=== PATIENT | female | born 1950 | race Caucasian/White ===

== ENCOUNTER → 2016-10-02 | Outpatient (CLI) | payer BC ==
--- NOTE | 2016-10-03 11:58 | RAD ---
DATE: 10/03/2016 EXAM: DIGITAL SCREEN BILAT W/CAD HISTORY: 66-year-old female presents for screening mammography. COMPARISON: 09/01/2015 TECHNIQUE: Full field digital craniocaudal and mediolateral oblique views of both breasts are obtained. This study was interpreted with the benefit of Computerized Aided Detection (CAD). FINDINGS: Breast parenchymal combination: Level B. The breast parenchyma shows scattered fibroglandular densities. There is no suspicious mass, calcification or architectural distortion within either breast. IMPRESSION: No new suspicious mammographic finding. BI-RADS CATEGORY: 2 BENIGN FINDING RECOMMENDED FOLLOW-UP: 12M 12 MONTH FOLLOW-UP PQRS compliance statement: Patient information was entered into a reminder system with a target due date in one year for the next mammogram. Mammography is a sensitive method for finding small breast cancers, but it does not detect them all and is not a substitute for careful clinical examination. A negative mammogram does not negate a clinically suspicious finding and should not result in delay in biopsying a clinically suspicious abnormality. "Our facility is accredited by the [employer] Mammography [employer]."
== END | disposition home or self-care (01) ==
LOC: MAMMO 13:48
PROVIDERS: ATTEND Obstetrics & Gynecology
DX: Z12.31 Encounter for screening mammogram for malignant neoplasm of breast (principal)
CPT/HCPCS: G0202; 77067

== ENCOUNTER 2017-09-14 16:45 | Emergency (ER) | payer MEDICARE ==
[~2017-09-14] VITALS: Ht 162.6 cm; Wt 76.2 kg
[2017-09-14] MEDS ORDERED: ACETAMINOPHEN 500 MG TABLET PO ONE (17:15)
--- NOTE | 2017-09-14 17:17 | PHYS DOC ---
Past History Past Medical History: Arthritis, Fibromyalgia, GERD, Hyperthyroid Past Surgical History: Cholecystectomy, Tonsillectomy, Other Drug Use: None Adult General Chief Complaint Chief Complaint: POST-OP PROBLEM HPI HPI 67-year-old female patient states she had colonoscopy and EGD today with stomach biopsy without colon biopsy. Patient state she started to have pain in her lower extremities and knees and back and was shaking and didn't feel good. Patient states she was a squeezing on her way to come to the hospital but denies sore throat, fever, cough, nausea and vomiting, abdominal pain, chest pain and shortness of breath, sick contact. Review of Systems Review of Systems Constitutional: Denies fever, reports chills Eyes: Denies change in visual acuity, redness, or eye pain [] HENT: Denies nasal congestion or sore throat [] Respiratory: Denies cough or shortness of breath [] Cardiovascular: No additional information not addressed in HPI [] GI: Denies abdominal pain, nausea, vomiting, bloody stools or diarrhea [] : Denies dysuria or hematuria [] Musculoskeletal: Reports back pain and joint pain [] Integument: Denies rash or skin lesions [] Neurologic: Denies headache, focal weakness or sensory changes [] Endocrine: Denies polyuria or polydipsia [] All other systems were reviewed and found to be within normal limits, except as documented in this note. Current Medications Current Medications Current Medications Medications (Trade) Dose Ordered Sig/Yaritza Start Time Stop Time Status Last Admin Dose Admin Acetaminophen (Tylenol) 1,000 mg 1X ONCE 09/14/17 17:15 09/14/17 17:16 UNV Allergies Allergies Allergies Coded Allergies Type Severity Reaction Last Updated Verified metoclopramide Allergy Intermediate 09/14/17 Yes Uncoded Allergies Type Severity Reaction Last Updated Verified PCN Allergy Intermediate 09/14/17 Physical Exam Physical Exam Constitutional: Well developed, well nourished, mild distress, non-toxic appearance, febrile, T-101. [] HENT: Normocephalic, atraumatic, bilateral external ears normal, oropharynx moist, pharyngeal erythema, no oral exudates, nose normal. [] Eyes: PERRLA, EOMI, conjunctiva normal, no discharge. [] Neck: Normal range of motion, no tenderness, supple, no stridor. [] Cardiovascular:Heart rate regular rhythm, no murmur [] Lungs & Thorax: Bilateral breath sounds clear to auscultation [] Abdomen: Bowel sounds normal, soft, no tenderness, no masses, no pulsatile masses. [] Skin: Warm, dry, no erythema, no rash. [] Back: No tenderness, no CVA tenderness. [] Extremities: No tenderness, no cyanosis, no clubbing, ROM intact, no edema. [] Neurologic: Alert and oriented X 3, normal motor function, normal sensory function, no focal deficits noted. [] Psychologic: Affect normal, judgement normal, mood normal. [] Current Patient Data Vital Signs Vital Signs Date Time Temp Pulse Resp B/P (MAP) Pulse Ox O2 Delivery O2 Flow Rate FiO2 09/14/17 17:04 100.4 94 24 100 Room Air EKG EKG [] Radiology/Procedures Radiology/Procedures [] Course & Med Decision Making Course & Med Decision Making Pertinent Labs and Imaging are pending. I have reinterviewed and reexamined the patient. The patient states she feels back to baseline at this time. The patient states she's had similar reactions in the past after getting medications for procedures. General: No acute distress, nontoxic, not ill-appearing. HEENT: Normocephalic and atraumatic. Oropharynx is normal. No LAD, no meningeal signs Lungs: Clear to auscultation bilaterally, no tachypnea Abdomen: Soft nontender nondistended. Back: Nontender, no CVA tenderness. Cardiovascular: RRR, equal pulses, normal perfusion. Extremities: No signs of edema or DVT The patient looks well and she feels back to baseline. There is some white blood cells in the urine but the patient does not endorse urinary symptoms. There is a slight elevation of the lactic acid that the patient does not present with signs of sepsis at this time. I explained to the patient that this may be an early presentation but he could also have been a reaction to the medication she received today. I have discussed this with the family and the patient and they understand the need for follow-up and they agreed to do so. [] Dragon Disclaimer Dragon Disclaimer This electronic medical record was generated, in whole or in part, using a voice recognition dictation system. Departure Departure: Impression: Primary Impression: Fever Additional Impressions: Drug reaction Leukocytosis, unspecified Disposition: ADMITTED INPATIENT Condition: STABLE Referrals: ERA EDWARDS (PCP) Please follow with your doctor for recheck and reevaluation in 2 days Patient Instructions: Fever, Leukocytosis Problem Qualifiers LATOSHA SANCHEZ MD Sep 14, 2017 17:17 Felton NEVES MD Sep 14, 2017 20:14
[2017-09-14 17:47] LABS: INFLUENZA A PATIENT NEGATIVE (NEGATIVE); INFLUENZA B PATIENT NEGATIVE (NEGATIVE)
[2017-09-14] MEDS ORDERED: IV NORMAL SALINE 1,000ML 1,000 ML IV SCH (17:47)
[2017-09-14] MEDS ORDERED: IV NORMAL SALINE 1,000ML 1,000 ML IV ONE (18:00)
[2017-09-14 18:49] LABS: BASO # 0.1 x10^3/uL (0.0-0.2); BASO % 1 % (0-3); EOS # 0.1 x10^3/uL (0.0-0.7); EOS % 0 % (0-3); HEMATOCRIT 39.9 % (36.0-47.0); HEMOGLOBIN 13.5 g/dL (12.0-15.5); LYMPH # 1.2 x10^3/uL (1.0-4.8); LYMPH % 7 % (24-48); MEAN CORPUSCULAR HEMOGLOBIN 30 pg (25-35); MEAN CORPUSCULAR HGB CONC 34 g/dL (31-37); MEAN CORPUSCULAR VOLUME 88 fL (79-100); MONO # 0.4 x10^3/uL (0.0-1.1); MONO % 2 % (0-9); NEUT % 90 % (31-73); PLATELET COUNT 402 x10^3/uL (140-400); RED BLOOD COUNT 4.55 x10^6/uL (3.50-5.40); RED CELL DISTRIBUTION WIDTH 14.9 % (11.5-14.5); WHITE BLOOD COUNT 16.6 x10^3/uL (4.0-11.0)
[2017-09-14 19:13] LABS: ALBUMIN 3.5 g/dL (3.4-5.0); ALBUMIN/GLOBULIN RATIO 0.9 (1.0-1.7); CREATININE 1.1 mg/dL (0.6-1.0); GFR 49.8; POTASSIUM 3.5 mmol/L (3.5-5.1); TOTAL BILIRUBIN 0.3 mg/dL (0.2-1.0); TOTAL PROTEIN 7.2 g/dL (6.4-8.2)
[2017-09-14 19:19] LABS: BILIRUBIN,URINE NEG (NEG); CLARITY,URINE HAZY; COLOR,URINE YELLOW; GLUCOSE,URINE NEG (NEG)
[2017-09-14 19:20] LABS: BACTERIA,URINE FEW /HPF (0-FEW); NITRITE,URINE NEG (NEG); RBC,URINE 0 /HPF (0-2); SQUAMOUS EPITHELIAL CELL,UR MOD /LPF; UROBILINOGEN,URINE 0.2 mg/dL (0.2 mg/dL); WBC,URINE 20-40 /HPF (0-4)
[2017-09-14 20:50] VITALS: BP 163/71
[2017-09-14 22:49] LABS: % BASOS 1 % (0-3); % LYMPHS 10 % (24-48); % MONOS 1 % (0-10); % SEGS 88 % (35-66); PLT ESTIMATE INCREASED (ADEQUATE)
[2017-09-14 22:50] LABS: OVALOCYTES OCC; SCHISTOCYTES OCC
== END 2017-09-14 20:55 | disposition home or self-care (01) ==
LOC: ER 16:45
DX: D72.829 Elevated white blood cell count, unspecified (principal); T50.905A Adverse effect of unspecified drugs, medicaments and biological substances, initial encounter; K21.9 Gastro-esophageal reflux disease without esophagitis; M79.7 Fibromyalgia; E05.90 Thyrotoxicosis, unspecified without thyrotoxic crisis or storm; Z98.890 Other specified postprocedural states; Z88.8 Allergy status to other drugs, medicaments and biological substances; Y92.89 Other specified places as the place of occurrence of the external cause
CPT/HCPCS: 36415; 80048; 80053; 81001; 82553; 83605; 83690; 84484; 85007; 85025; 85610; 87040; 87086; 87804; 96360; 96361; 99285-25; J7030

== ENCOUNTER → 2017-10-09 | Outpatient (CLI) | payer MEDICARE ==
[2017-09-14 20:50] VITALS: BP 163/71
--- NOTE | 2017-10-09 16:10 | RAD ---
Bone densitometry scan, 10/09/2017: History: Ovarian failure, osteoporosis screening The lumbar spine and right hip were examined utilizing a DEXA technique. The bone mineral density in the lumbar spine as measured from the L1-L4 levels is 0.94 g/sq cm. This yields a T score of -2.0 compatible with osteopenia. The lumbar spine T score on the previous study of 10/10/2011 was -2.5. The total T score at the right hip is currently -0.9 which is in the normal range. On the previous study the right hip T score was -1.2. IMPRESSION: 1. Osteopenia in the lumbar spine, improved since 10/10/2011. 2. The right hip bone mineral density measurement has also improved and is now in the normal range.
--- NOTE | 2017-10-10 09:07 | RAD ---
DATE: 10/09/2017 EXAM: MAMMO SABA SCREENING BILATERAL HISTORY: Routine screening COMPARISON: 25/01/2017 This study was interpreted with the benefit of Computerized Aided Detection (CAD). The breast parenchyma shows scattered fibroglandular densities. Breast parenchyma level B. FINDINGS: 2-D and 3-D tomosynthesis imaging was performed in CC and MLO projections. No new or enlarging breast densities are seen. No suspicious microcalcifications have developed. IMPRESSION: Stable mammograms without evidence of malignancy. BI-RADS CATEGORY: 1 NEGATIVE RECOMMENDED FOLLOW-UP: 12M 12 MONTH FOLLOW-UP PQRS compliance statement: Patient information was entered into a reminder system with a target due date for the next mammogram. Mammography is a sensitive method for finding small breast cancers, but it does not detect them all and is not a substitute for careful clinical examination. A negative mammogram does not negate a clinically suspicious finding and should not result in delay in biopsying a clinically suspicious abnormality. "Our facility is accredited by the [employer] Mammography [employer]."
== END | disposition home or self-care (01) ==
LOC: MAMMO 11:07
PROVIDERS: ATTEND Physician Assistant Medical
DX: Z12.31 Encounter for screening mammogram for malignant neoplasm of breast (principal); Z13.820 Encounter for screening for osteoporosis; M85.88 Other specified disorders of bone density and structure, other site; E28.39 Other primary ovarian failure; E05.90 Thyrotoxicosis, unspecified without thyrotoxic crisis or storm; K21.9 Gastro-esophageal reflux disease without esophagitis
CPT/HCPCS: 77063; 77067; 77081

== ENCOUNTER → 2020-04-22 | Outpatient (CLI) | payer MEDICARE ==
--- NOTE | 2020-04-22 15:00 | RAD ---
DEXA scan 04/22/2020 Clinical History: Osteoporosis. Technique: DEXA of the lumbar spine and right hip was performed. FINDINGS: Comparison study is dated 10/09/2017. The bone mineral density of the lumbar spine is 0.981 g/cm2 which corresponds with a T-score of -1.7 . This is consistent with moderate osteopenia. The mean bone mineral density has increased since the previous examination where it measured 0.941 g/sq cm. The mean bone mineral density of the right hip is 0.861 g/sq cm. This corresponds to a T score of -0.8. This is within the left lower limits of normal. The mean bone mineral density of the right hip as increased since the previous study where it measured 0.850 g/sq cm. By [employer] on Osteoporosis criteria, a T score of 0 to-1 SD is considered to be within normal limits. A T score of -1 to -2.5 SD is considered osteopenia. A T score less than -2.5 SD is considered osteoporosis Impression: 1. Moderate osteopenia of the lumbar spine. 2. The mean bone mineral density of the right hip is within the lower limits of normal. 3. The patient's mean bone mineral densities have increased since the previous study. Electronically signed by: Jj Garcia MD (04/22/2020 2:57 PM) [id number]
--- NOTE | 2020-04-23 12:33 | RAD ---
DATE: 04/22/2020 11:00 AM EXAM: MAMMO SABA SCREENING BILATERAL HISTORY: Screening COMPARISON: 10/09/2017, 10/02/2016 Bilateral CC and MLO views of the breasts were performed. Bilateral breast tomosynthesis was performed in CC and MLO projections. This study was interpreted with the benefit of Computerized Aided Detection (CAD). FINDINGS: Breast Density: SCATTERED The breast parenchyma shows scattered fibroglandular densities. Breast parenchyma level B No suspicious masses, microcalcifications or architectural distortion is present to suggest malignancy in either breast. The visualized axillae are unremarkable. IMPRESSION: No mammographic evidence of malignancy. BI-RADS CATEGORY: 1 NEGATIVE RECOMMENDED FOLLOW-UP: 12M 12 MONTH FOLLOW-UP Annual screening mammography is recommended, unless clinically indicated sooner based on symptoms or change in physical exam. PQRS compliance statement: Patient information was entered into a reminder system with a target due date for the next mammogram. Mammography is a sensitive method for finding small breast cancers, but it does not detect them all and is not a substitute for careful clinical examination. A negative mammogram does not negate a clinically suspicious finding and should not result in delay in biopsying a clinically suspicious abnormality. "Our facility is accredited by the [employer] Mammography [employer]."
== END ==
LOC: DXRAD 10:53
PROVIDERS: ATTEND Physician Assistant Medical
DX: Z12.31 Encounter for screening mammogram for malignant neoplasm of breast (principal); M81.0 Age-related osteoporosis without current pathological fracture; M85.88 Other specified disorders of bone density and structure, other site
CPT/HCPCS: 77063; 77067; 77080

== ENCOUNTER → 2020-04-28 | Outpatient (CLI) | payer MEDICARE | LOC: LAB 10:58 | PROVIDERS: ATTEND Physician Assistant Medical | DX: M85.88 Other specified disorders of bone density and structure, other site (principal) | CPT/HCPCS: 82306 ==

== ENCOUNTER → 2021-05-02 | Outpatient (CLI) | payer MEDICARE ==
--- NOTE | 2021-05-03 11:25 | RAD ---
Bilateral digital screening mammogram to include digital breast tomosynthesis (3-D mammography) 05/02 CLINICAL HISTORY: Screening study. Digital MLO and CC mammograms of both breasts were obtained. Additionally digital breast tomosynthesi s images (3-D mammography) of both breasts in the CC and MLO projections were obtained. Comparison studies are dated 04/22/2020, 10/09/2017 and 12/02/2016. The breast parenchyma is composed of scattered fibroglandular densities which can obscure a lesion on mammography (breast density B). No spiculated mass is seen. No malignant appearing calcification or area of architectural distortion is noted. Digital breast tomosynthesis images demonstrate no spiculated mass. No malignant appearing calcificat ion is seen. Impression: BI-RADS Category 1: Negative. There is no mammographic evidence of malignancy. Routine y early screening mammography is recommended for follow-up. This examination was reviewed with the aid of computer-aided detection. A mammogram does not have 100% sensitivity and therefore a negative imaging study should not delay fu rther work up of a suspicious abnormality. Patient information is entered into the reminder system with a target due date for the next screening mammogram of 05/02/2022. "Our facility is accredited by the [employer] Mammography [employer]." Electronically signed by: Jj Garcia MD (05/03/2021 11:23 AM) [id number]
== END ==
LOC: MAMMO 14:57
PROVIDERS: ATTEND Physician Assistant Medical
DX: Z12.31 Encounter for screening mammogram for malignant neoplasm of breast (principal)
CPT/HCPCS: 77063; 77067